=== PATIENT | male | born 1995 | race Caucasian/White ===

== ENCOUNTER 2016-04-25 18:10 | Emergency (ER) | payer BC, MEDICAID ==
[2016-04-25] MEDS ORDERED: METHYLPRED SOD SUCC 125 MG/2 ML VIAL ONE (20:28)
[2016-04-25] MEDS ORDERED: NEB-ALBUTEROL 2.5 MG/3 ML INH ONE (20:53)
== END 2016-04-25 21:05 | disposition home or self-care (01) ==
LOC: ER 18:10
DX: J20.9 Acute bronchitis, unspecified (principal); J41.1 Mucopurulent chronic bronchitis; J45.909 Unspecified asthma, uncomplicated; Z79.899 Other long term (current) drug therapy; F17.210 Nicotine dependence, cigarettes, uncomplicated
CPT/HCPCS: 71020; 94640; 96374